=== PATIENT | female | born 1995 | race African-American/Black ===

== ENCOUNTER 2017-04-21 17:38 | Emergency (ER) | payer SELFPAY ==
[2017-04-21] MEDS ORDERED: LIDOCAINE 1% INJ-PF (10 MG/ML) 30 ML SDV INJ ONE (19:10)
--- NOTE | 2017-04-21 19:11 | ER Document Report ---
ED Skin Rash/Insect Bite/Abscs - General Chief Complaint: Abscess Stated Complaint: POSSIBLE ABCSESS Time Seen by Provider: 04/21/17 18:28 Mode of Arrival: Ambulatory Information source: Patient Notes: Patient is a 21-year-old female who presents to the ER today for possible abscess to her labia. Patient states that has been present for 2-3 weeks, however started getting larger and hurting her over the past 2 days. She denies any drainage, history of MRSA. She denies any fevers or chills. She states that it hurts to sit down. TRAVEL OUTSIDE OF THE [place] IN LAST 30 DAYS: No - Related Data Allergies/Adverse Reactions: No Known Allergies Allergy (Verified 04/21/17 17:39) Past Medical History - General Information source: Patient - Social History Smoking Status: Never Smoker Chew tobacco use (# tins/day): No Frequency of alcohol use: Social Drug Abuse: None Family History: Reviewed & Not Pertinent Patient has suicidal ideation: No Patient has homicidal ideation: No Renal/ Medical History: Denies: Hx Peritoneal Dialysis Review of Systems - Review of Systems Constitutional: No symptoms reported EENT: No symptoms reported Cardiovascular: No symptoms reported Respiratory: No symptoms reported Gastrointestinal: No symptoms reported Genitourinary: No symptoms reported Female Genitourinary: See HPI Musculoskeletal: No symptoms reported Skin: No symptoms reported Hematologic/Lymphatic: No symptoms reported Neurological/Psychological: No symptoms reported Physical Exam - Vital signs Vitals: Temp Pulse Resp BP Pulse Ox 98.7 F 87 16 134/87 H 100 04/21/17 17:42 04/21/17 17:42 04/21/17 17:42 04/21/17 17:42 04/21/17 17:42 - Notes Notes: PHYSICAL EXAMINATION: GENERAL: Well-appearing, morbidly obese, and in no acute distress. HEAD: Atraumatic, normocephalic. EYES: Pupils equal round and reactive to light, extraocular movements intact, sclera anicteric, conjunctiva are normal. NECK: Normal range of motion, supple without lymphadenopathy LUNGS: CTAB and equal. No wheezes rales or rhonchi. HEART: Regular rate and rhythm without murmurs : A 3 cm in diameter Induration to left labia, tender to palpation, fluctuance noted, not warm to the touch EXTREMITIES: Normal range of motion, no pitting edema. No cyanosis. NEUROLOGICAL: Cranial nerves grossly intact. Normal sensory/motor exams. PSYCH: Normal mood, normal affect. SKIN: Warm, Dry, normal turgor, no rashes or lesions noted Course - Re-evaluation Re-evalutation: 04/21/17 21:03 multiple blood clots were removed from Left labial enlargement, patient placed on Keflex although I did not see any pus draining from the area. gauze was applied and bleeding Does stop with pressure, patient advised to keep pressure gauze on area for the next 24 hours, she is advised to return with any worsening symptoms or continued bleeding. - Vital Signs Vital signs: Temp Pulse Resp BP Pulse Ox 98.7 F 87 16 134/87 H 100 04/21/17 17:42 04/21/17 17:42 04/21/17 17:42 04/21/17 17:42 04/21/17 17:42 Procedures - Incision and Drainage Left Labia Time completed: 20:18 Type: Complex Anesthetic type: 1% Lidocaine mL's of anesthetic: 5 Blade size: 11 I&D procedure: Betadine prep applied Incision Method: Incision made by scalpel Amount/type of drainage: multiple blood clots were removed Discharge - Discharge Clinical Impression: Hematoma of labia majora Condition: Stable Disposition: HOME, SELF-CARE Instructions: Cephalexin ([facility]), Post Incision and Drainage Additional Instructions: Return immediately for any new or worsening symptoms. Follow up with primary care provider, call tomorrow to make followup appointment. Prescriptions: Cephalexin Monohydrate [Keflex 500 mg Capsule] 500 mg PO BID 5 Days capsule
[2017-04-21] MEDS ORDERED: HYDROCODONE/ACETAMINOPHEN 5-325 MG (6 TAB/ER DISP) PO PRN (20:20)
[2017-04-21 21:05] VITALS: BP 142/89
== END 2017-04-21 21:05 | disposition home or self-care (01) ==
LOC: ER 17:38
PROC: 0W9N0ZZ Drainage of Female Perineum, Open Approach (ICD-10-PCS; principal; 2017-04-21)
DX: N76.4 Abscess of vulva (principal)
CPT/HCPCS: 99283; 56405; J3490

== ENCOUNTER → 2018-09-21 | Outpatient (CLI) | payer BC ==
--- NOTE | 2018-09-21 12:28 | WOMENS IMAGING REPORT ---
EXAM DESCRIPTION: U/S PELVIS NON-OB COMPLETED DATE/TIME: 09/21/2018 12:13 pm REASON FOR STUDY: Z30.431 ENCOUNTER FOR ROUTINE CHECKING OF INTRAUTERINE CONTRACEPTIVE DEVICE Z30.43 1 ENCOUNTER FOR ROUTINE CHECKING OF INTRAUTERINE CONTR COMPARISON: None. TECHNIQUE: Dynamic and static grayscale images acquired of the pelvis via transvaginal approach and recorded on PACS. Additional selected color Doppler and spectral images recorded. LIMITATIONS: Body habitus. FINDINGS: UTERUS: Contour normal. No mass. ENDOMETRIAL STRIPE: No focal or generalized thickening. No masses. An IUD is in place. It sits lowe r then would be expected. CERVIX: No nabothian cysts. RIGHT OVARY AND DOPPLER: Ovary not visualized. LEFT OVARY AND DOPPLER: Normal size. No worrisome masses. Normal arterial vascular flow without evide nce for torsion. FREE FLUID: None noted. OTHER: No other significant finding. MEASUREMENTS: UTERUS: 8.9 x 4.2 x 5.0 cm. ENDOMETRIAL STRIPE: 6.3 mm. RIGHT OVARY: Not visualized. LEFT OVARY: 2.1 x 2.8 x 1.9 cm. IMPRESSION: The IUD is in place. It appears to lie lower than expected in the endometrial canal. T he study is limited by body habitus. TECHNICAL DOCUMENTATION: JOB ID: [id number] [employer]- All Rights Reserved Reading location - IP/workstation name: [email or web address]
== END ==
LOC: WI 10:19
PROVIDERS: ATTEND Obstetrics & Gynecology Gynecology
DX: Z30.431 Encounter for routine checking of intrauterine contraceptive device (principal)
CPT/HCPCS: 76856